=== PATIENT | male | born 1990 | race Two or more races ===

== ENCOUNTER 2024-11-10 21:38 | Emergency (ER) | payer OTHER ==
[~2024-11-10] VITALS: Ht 172.7 cm; Wt 92.5 kg
[2024-11-10 22:08] LABS: Hematocrit 33.5 % (41.0-53.0); Hemoglobin 11.1 g/dL (13.5-17.5); Mean Corpuscular Hemoglobin 25.5 pg (28.0-32.0); Mean Corpuscular Volume 77.1 fL (80.0-100.0); Nucleated Red Blood Cells % 0.1 %
[2024-11-10 22:13] LABS: Chloride 99 mmol/L (98-107); Potassium 3.7 mmol/L (3.5-5.1); Sodium 137 mmol/L (136-145)
[2024-11-10 22:14] LABS: Anion Gap 12 (5-15); Carbon Dioxide 26 mmol/L (20-31)
[2024-11-10 22:15] LABS: Calcium 9.5 mg/dL (8.7-10.4)
[2024-11-10 22:19] LABS: BUN/Creatinine Ratio 8.8 (10.0-20.0); Blood Urea Nitrogen 10 mg/dL (9-23); Glucose 91 mg/dL (74-106)
[2024-11-10] MEDS: ACETAMINOPHEN 325 MG TAB PO ONE (22:32)
[2024-11-10 22:36] LABS: Lipase 27 U/L (12-53)
--- NOTE | 2024-11-10 22:41 | DVH ---
CHEST RADIOGRAPH Indication: cough Technique: 1 view Comparison: None FINDINGS: Lines and Tubes: None. Lungs/Pleura: Dense right upper lobe consolidation. The left lung is clear. No pleural abnormality. Cardiomediastinum: Unremarkable. Other: No acute osseous abnormality. IMPRESSION: Right upper lobe consolidation consistent with pneumonia.
[2024-11-10 22:51] LABS: Urine Protein, UAD 1+ (Negative)
--- NOTE | 2024-11-11 00:26 | ED.PDOC ---
SOB-HPI HPI Comments 34-year-old male presents to ER with complaints of cough x1 week. Patient reports he has been experiencing productive cough with green phlegm, intermittent fever/body aches/chills and intermittent frontal headache/nausea x 1 week. He rates his current pain a 7/10. States that he last took [id number] DayQuil for his symptoms at 12:00 p.m. prior to arrival to ER. Patient presents to ER febrile on arrival at 102.1 F, ambulatory, alert oriented x4, with steady gait, in no distress and notes he's also experienced intermittent episodes of shortness of breath x 1 week. Denies chest pain, hemoptysis, nausea/vomiting, sore throat, dizziness, night sweats or any further symptoms/complaints Chief Complaint: Flu like Time Seen by MD: 21:48 Primary Care Provider: KAY Reviewed notes: Nurses Notes, Medications, Allergies Information Source: Patient Mode of Arrival: Ambulatory Past Medical History Past Medical History (Other): Cervical fx Surgical History (Other): Cerivcal spinal surgery Family History Family History: Unknown Social History Smoker: Non-Smoker Alcohol: Denies ETOH Use Drugs: Denies Drug Use Lives In: Home Constitutional: reports: others (As stated in HPI) EENTM: reports: others (As stated in HPI) Respiratory: reports: others (As stated in HPI) Cardiovascular: denies: chest pain, dizzy spells, diaphoresis, Dyspnea on exertion, edema, irregular heart beat, left arm pain, lightheadedness, palpitations, PND, syncope, others Gastrointestinal: denies: abdomen distended, abdominal pain, blood streaked bowels, constipated, diarrhea, dysphagia, difficulty swallowing, hematemesis, melena, nausea, poor appetite, poor fluid intake, rectal bleeding, rectal pain, vomiting, others Genitourinary: denies: burning, dysuria, flank pain, frequency, hematuria, incontinence, penile discharge, penile sore, pain, testicle pain, testicle swelling, urgency, others Neurological: reports: others (As stated in HPI) Musculoskeletal: denies: back pain, gout, joint pain, joint swelling, muscle pain, muscle stiffness, neck pain, others Integumetry: denies: bruises, change in color, change in hair/nails, dryness, laceration, lesions, lumps, rash, wounds, others Allergic/Immunocompromised: denies: Difficulty Healing, Frequent Infections, Hives, Itching, others Hematologic/Lymphatic: denies: anemia, blood clots, easy bleeding, easy bruising, swollen glands, others Endocrine: denies: excessive hunger, excessive sweating, excessive thirst, excessive urination, flushing, intolerance to cold, intolerance to heat, unexplained weight gain, unexplained weight loss, others Psychiatric: denies: anxiety, bipolar disorder, depression, hopeless, panic disorder, schizophrenia, sleepless, suicidal, others Physical Exam General Appearance: No Apparent Distress, Obese HEENT: Normal ENT Inspection, PERRL/EOMI, Pharynx Normal, TMs Normal Neck: Full Range of Motion, Non-Tender, Normal Respiratory: Chest Non-Tender, Decreased Breath Sounds (Noted to right upper lung jimenes), Lungs Clear, No Accessory Muscle Use, No Respiratory Distress Cardiovascular: No Murmur, No Gallop, Regular Rate/Rhythm Breast Exam: Deferred Gastrointestinal: Non Tender, No Pulsatile Mass, Soft Genitalia: Deferred Pelvic: Deferred Rectal: Deferred Extremities: Normal capillary refill, Normal range of motion Neurologic: Alert, 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 Was a procedure done?: No Sedation Sedation?: No Differential Dx Differential Diagnosis: Pulmonary Embolism, Respiratory Distress, Pharyngitis, URI, Other (COVID-19, INFLUENZA) X-Ray, Labs, Meds, VS Vital Signs Date Time Temp Pulse Resp B/P (MAP) Pulse Ox O2 Delivery O2 Flow Rate FiO2 11/11/24 02:14 99.5 84 16 144/78 (100) 97 99.5 11/11/24 00:05 98 19 94 Room Air 11/11/24 00:05 99.5 98 19 143/74 (97) 94 99.5 11/10/24 23:32 99.6 11/10/24 22:32 100.4 11/10/24 21:43 101.5 95 20 128/69 95 101.5 Lab Test 11/11/24 00:19 106/25 00:14 11/10/24 22:00 11/10/24 21:58 Range/Units Lactic Acid Level 1.3 0.4-2.0 mmol/L Influenza Type A Antigen Negative Negative Influenza Type B Antigen Negative Negative SARS-CoV-2 Antigen (Rapid) Negative NEGATIVE Urine Color Yellow Yellow Urine Clarity Clear Clear Urine pH 7.0 5.0-9.0 Urine Specific [employer] 1.027 1.001-1.035 Urine Protein 1+ H Negative Urine Ketones 3+ H Negative Urine Blood Negative Negative /uL Urine Nitrite Negative Negative Urine Bilirubin Negative Negative Urine Urobilinogen 4 H Negative mg/dL Urine Leukocyte Esterase Negative Negative /uL Urine RBC 1 0 - 3 /hpf Urine Microscopic WBC 1 0-3 /HPF Urine Squamous Epithelial Cells Few <5 /hpf Urine Bacteria None seen None Seen /hpf Urine Mucus Few None Seen Urine Glucose Normal Normal mg/dL White Blood Count 7.5 4.4-10.8 10^3/uL Red Blood Count 4.35 L 4.5-5.90 10^6/uL Hemoglobin 11.1 L 13.5-17.5 g/dL Hematocrit 33.5 L 41.0-53.0 % Mean Corpuscular Volume 77.1 L 80.0-100.0 fL Mean Corpuscular Hemoglobin 25.5 L 28.0-32.0 pg Mean Corpuscular Hemoglobin Concent 33.1 32.0-36.0 g/dL Red Cell Distribution Width 15.6 H 11.8-14.3 % Platelet Count 282 140-450 10^3/uL Mean Platelet Volume 8.4 6.9-10.8 fL Neutrophils (%) (Auto) 77.8 37.0-80.0 % Lymphocytes (%) (Auto) 11.8 10.0-50.0 % Monocytes (%) (Auto) 8.7 0.0-12.0 % Eosinophils (%) (Auto) 0.9 0.0-7.0 % Basophils (%) (Auto) 0.8 0.0-2.0 % Neutrophils # (Auto) 5.8 1.6-8.6 10 ^3/uL Lymphocytes # (Auto) 0.9 0.4-5.4 10 ^3/uL Monocytes # (Auto) 0.6 0-1.3 10 ^3/uL Eosinophils # (Auto) 0.1 0-0.8 10 ^3/uL Basophils # (Auto) 0.1 0-0.2 10 ^3/uL Nucleated Red Blood Cells 0.1 % D-Dimer, Quantitative 1.30 H 0.0-0.49 mg/L FEU Sodium Level 137 136-145 mmol/L Potassium Level 3.7 3.5-5.1 mmol/L Chloride Level 99 98-107 mmol/L Carbon Dioxide Level 26 20-31 mmol/L Anion Gap 12 5-15 Blood Urea Nitrogen 10 9-23 mg/dL Creatinine 1.14 0.700-1.30 mg/dL Glomerular Filtration Rate Calc 87 >90 mL/min BUN/Creatinine Ratio 8.8 L 10.0-20.0 Serum Glucose 91 74-106 mg/dL Calcium Level 9.5 8.7-10.4 mg/dL Lipase 27 12-53 U/L Current Medications Medications (Trade) Dose Ordered Sig/Diomedes Route Start Time Stop Time Status Last Admin Acetaminophen (Tylenol Tablet) 650 mg ONCE ONCE PO 11/10/24 22:00 11/10/24 22:01 DC 11/10/24 22:32 Ceftriaxone Sodium 50 ml @ 100 mls/hr ONCE ONCE IV 11/11/24 00:15 11/11/24 00:45 DC 11/11/24 01:02 Azithromycin 250 ml @ 125 mls/hr ONCE ONCE IV 11/11/24 00:15 11/11/24 02:14 DC 11/11/24 02:00 Methylprednisolone Sodium Succinate (Solu Medrol) 125 mg ONCE ONCE IV 11/11/24 00:15 11/11/24 00:16 DC 11/11/24 01:02 Sodium Chloride 1,000 ml @ 1,000 mls/hr Q1H ONCE IV 11/11/24 00:15 11/11/24 01:14 DC 11/11/24 00:32 PATIENT: DIGNA PINZON,NYAOREACCT: [id number]: [id number] : 1990 LOC: ER ROOM / BED: / AGE / SEX: 34 / M ADM STATUS: REG ER SERVICE [id number] ORDERING PHYSICIAN: MARY ALEXANDRE PROCEDURE(s): CXR2 - CHEST TWO VIEWS ROUTINE REASON: cough ORDER NUMBER(s): [id number], ACCESSION NUMBER(s): [id number] CHEST RADIOGRAPH Indication: cough Technique: 1 view Comparison: None FINDINGS: Lines and Tubes: None. Lungs/Pleura: Dense right upper lobe consolidation. The left lung is clear. No pleural abnormality. Cardiomediastinum: Unremarkable. Other: No acute osseous abnormality. IMPRESSION: Right upper lobe consolidation consistent with pneumonia. ATED BY: KENRICK FRANCISCO MD DICTATED DATE/TIME: 11/10/242238 SIGNED BY: KENRICK FRANCISCO MD SIGNED DATE/TIME: 11/10/242238 CC: PATIENT: DIGNA PINZONTHELIONELOREACCT: [id number] UNIT: [id number] : 1990 LOC: ER ROOM / BED: / AGE / SEX: 34 / M ADM STATUS: REG ER SERVICE [id number] ORDERING PHYSICIAN: MARY ALEXANDRE PROCEDURE(s): CTACH - CT ANGIO CHEST CONTRAST REASON: shortness of breath, r/o PE ORDER NUMBER(s): [id number], ACCESSION NUMBER(s): [id number] CTA Chest with intravenous contrast INDICATION: shortness of breath, r/o PE COMPARISON: None TECHNIQUE: Multidetector spiral CTA of the chest was performed of the chest with intravenous contrast. PULMONARY ANGIOGRAPHY PROTOCOL was utilized using a bolus- tracking technique centered on the main pulmonary artery. Axial, coronal and sagittal multiplanar and MIP reformats were performed. Radiation Dose : 1. Chest: CTDI volume is 25.75 mGy. Dose-length product is 1028.73 mGy*cm The dose indicators for CT are the volume Computed Tomography (CT) Dose Index (CTDIvol) and the Dose Length Product (DLP), and are measured in units of mGy and mGy-cm, respectively. These indicators are not patient dose, but values generated from the CT scanner acquisition factors. The report includes radiation exposure data for exposures received during this examination. Findings: Pulmonary artery: Suboptimal opacification of the pulmonary arterial vasculature secondary to timing of the contrast bolus limits the ability to exclude smaller and/or more distal segmental and subsegmental pulmonary emboli. No large central or large segmental pulmonary embolism. Lower neck: Normal thyroid. Lungs: Posterior right upper lobe consolidation with patchy multifocal right upper and lower lobe pulmonary infiltrate consistent with pneumonia. No evidence of pleural effusion or pneumothorax. Heart/Vascular Structures: Normal heart size. No pericardial effusion. Lymph Nodes: No adenopathy Musculoskeletal: No acute osseous abnormality. Soft tissues: Normal. Upper abdomen: Limited portions of the upper abdomen are unremarkable. IMPRESSION: 1. Suboptimal opacification of the pulmonary arterial vasculature secondary to timing of the contrast bolus limits the ability to exclude No large central or large segmental pulmonary embolism. 2. Posterior right upper lobe consolidation with patchy multifocal right upper and lower lobe pulmonary infiltrate consistent with pneumonia. ATED BY: JOSAFAT FRANCOIS MD DICTATED DATE/TIME: 11/11/24139 SIGNED BY: JOSAFAT FRANCOIS MD SIGNED DATE/TIME: 11/11/24139 CC: CBC reviewed-no leukocytosis BMP reviewed without any significant abnormalities Lipase reviewed-normal D-dimer 1.3 reviewed Lactic acid reviewed-normal Blood cultures ordered Reviewed without any significant abnormalities Swab results reviewed-negative Chest x-ray reviewed CT angio w/o contrast reviewed Hep-Lock IV ordered Rocephin 1 g IV ordered Azithromycin IV ordered Solu-Medrol 125 mg IV ordered NS 1 liter IV ordered Tylenol 650 mg PO ordered Ibuprofen 800 mg PO ordered Patient elected for outpatient management of pneumonia, had improvement in symptoms, vitals stable, denied any shortness of breath/chest pain, oxygenating well on RA, tolerating p.o. intake well and well appearing prior to discharge Strict return precautions were discussed with patient including worsening shortness of breath, chest pain, hemoptysis, vomiting, confusion, high fevers or any new/worsening symptoms Advised to follow up with PCP in 1-2 days Patient verbalized understanding and agreeable with current plan of care Advised to return to ER immediately if symptoms worsen Images Reviewed?: Images reviewed and evaluated by Time of 1ST Reevaluation: 00:22 Reevaluation 1ST: N/A Time of 2ND Reevaluation: 01:24 Reevaluation 2ND: Improved Patient Education/Counseling: Diagnosis, Treatment, Prognosis, Need For Follow Up Family Education/Counseling: No Family Present SEPSIS Sepsis Screen Date sepsis recognized/suspect: Nov 10, 2024 Time Sepsis recognized/suspect: 2145 Recent Procedure: No On Antibiotic Therapy: No Respiratory Rate >20: No Heart Rate >90: No Temp<36 C (96.8 F) or >38.3 C: Yes SBP <90 or MAP <65 mmHG: No New Acute Mental Status Change: No Is the patient on CPAP, BIPAP,: No Physician Orders Chest Two Views Routine (11/10/24 21:48) Heplock Iv (11/11/24 ) Blood Culture (11/11/24 00:07) Ct Angio Chest Contrast (11/11/24 00:59) Vital Signs Date Time Temp Pulse Resp B/P (MAP) Pulse Ox O2 Delivery O2 Flow Rate FiO2 11/11/24 02:14 99.5 84 16 144/78 (100) 97 99.5 11/11/24 00:05 98 19 94 Room Air 11/11/24 00:05 99.5 98 19 143/74 (97) 94 99.5 11/10/24 23:32 99.6 11/10/24 22:32 100.4 11/10/24 21:43 101.5 95 20 128/69 95 101.5 Laboratory Tests Test 11/10/24 21:58 11/11/24 00:19 White Blood Count 7.5 10^3/uL (4.4-10.8) Lactic Acid Level 1.3 mmol/L (0.4-2.0) Medications Medications Dose Ordered Sig/Diomedes Route Start Time Stop Time Status Last Admin Dose Admin Acetaminophen 650 mg ONCE ONCE PO 11/10/24 22:00 11/10/24 22:01 DC 11/10/24 22:32 Azithromycin 250 ml @ 125 mls/hr ONCE ONCE IV 11/11/24 00:15 11/11/24 02:14 DC 11/11/24 02:00 Ceftriaxone Sodium 50 ml @ 100 mls/hr ONCE ONCE IV 11/11/24 00:15 11/11/24 00:45 DC 11/11/24 01:02 Methylprednisolone Sodium Succinate 125 mg ONCE ONCE IV 11/11/24 00:15 11/11/24 00:16 DC 11/11/24 01:02 Sodium Chloride 1,000 ml @ 1,000 mls/hr Q1H ONCE IV 11/11/24 00:15 11/11/24 01:14 DC 11/11/24 00:32 Departure 1 Departure Time of Disposition: 01:48 Impression: Primary Impression: Pneumonia Qualified Codes: J18.9 - Pneumonia, unspecified organism Disposition: HOME / SELF CARE / HOMELESS Condition: Stable e-Prescriptions Albuterol Sulfate (VENTOLIN MDI) 90 Mcg Ih 2 PUFF IN Q6HPRN, #1 INH 0 Refills Prov: MARY ALEXANDRE 11/11/24 Acetaminophen (Acetaminophen) 500 Mg Tab 500 MG PO Q4HPRN, #30 TAB 0 Refills Prov: MARY ALEXANDRE 11/11/24 Prednisone (Prednisone) 20 Mg Tab 20 MG PO BID for 5 Days, #10 TAB 0 Refills Prov: MARY ALEXANDRE 11/11/24 Levofloxacin Hemihydrate (LEVOFLOXACIN) 750 Mg Tab 1 TAB PO DAILY for 5 Days, #5 TAB 0 Refills Prov: MARY ALEXANDRE 11/11/24 Discharged With: Self Critical Care Note Critical Care Time?: No Stability Stability form required: No Heart Score Heart Score: Heart Score Response (Comments) Value History N/A 0 EKG N/A 0 Age N/A 0 Risk Factors N/A 0 Troponin N/A 0 Total 0 MARY ALEXANDRE Nov 11, 2024 00:26
[2024-11-11] MEDS: IBUPROFEN 800 MG TAB PO ONE (00:30)
[2024-11-11] MEDS: SODIUM CHLORIDE 0.9% 1,000 ML IV ONE (00:32)
[2024-11-11] MEDS: methylPREDNISolone SOD SUCC 125 MG/2 ML VL IV ONE (01:02)
[2024-11-11 01:06] LABS: COVID19 ANTIGEN SOFIA FIA NEGATIVE (NEGATIVE)
[2024-11-11] MEDS: IOHEXOL 350 MG/ML 100ML IJ ONE (01:09)
--- NOTE | 2024-11-11 01:42 | DVH ---
CTA Chest with intravenous contrast INDICATION: shortness of breath, r/o PE COMPARISON: None TECHNIQUE: Multidetector spiral CTA of the chest was performed of the chest with intravenous contrast . PULMONARY ANGIOGRAPHY PROTOCOL was utilized using a bolus-tracking technique centered on the main p ulmonary artery. Axial, coronal and sagittal multiplanar and MIP reformats were performed. Radiation Dose : 1. Chest: CTDI volume is 25.75 mGy. Dose-length product is 1028.73 mGy*cm The dose indicators for CT are the volume Computed Tomography (CT) Dose Index (CTDIvol) and the Dose Length Product (DLP), and are measured in units of mGy and mGy-cm, respectively. These indicators are not patient dose, but values generated from the CT scanner acquisition factors. The report includes radiation exposure data for exposures received during this examination. Findings: Pulmonary artery: Suboptimal opacification of the pulmonary arterial vasculature secondary to timing of the contrast jennifer christa limits the ability to exclude smaller and/or more distal segmental and subsegmental pulmonary emb vida. No large central or large segmental pulmonary embolism. Lower neck: Normal thyroid. Lungs: Posterior right upper lobe consolidation with patchy multifocal right upper and lower lobe pul monary infiltrate consistent with pneumonia. No evidence of pleural effusion or pneumothorax. Heart/Vascular Structures: Normal heart size. No pericardial effusion. Lymph Nodes: No adenopathy Musculoskeletal: No acute osseous abnormality. Soft tissues: Normal. Upper abdomen: Limited portions of the upper abdomen are unremarkable. IMPRESSION: 1. Suboptimal opacification of the pulmonary arterial vasculature secondary to timing of the contrast bolus limits the ability to exclude No large central or large segmental pulmonary embolism. 2. Posterior right upper lobe consolidation with patchy multifocal right upper and lower lobe pulmona ry infiltrate consistent with pneumonia.
[2024-11-11] MEDS ORDERED: ACET500T58 PO (01:56)
[2024-11-11] MEDS ORDERED: ALBUAER3 IN (01:56)
[2024-11-11] MEDS ORDERED: PRED20TA2 PO (01:56)
[2024-11-11] MEDS ORDERED: LEVO750T40 PO (01:56)
[2024-11-11] MEDS: AZITHROMYCIN 500MG/ 250ML 250 ML IV ONE (02:00)
[2024-11-11 02:14] VITALS: BP 144/78; PULSE 84; RESP 16; TEMP 99.5; O2SAT 97
== END 2024-11-11 04:20 | disposition home or self-care (01) ==
LOC: ER 21:38
DX: J18.9 Pneumonia, unspecified organism (principal); Z20.822 Contact with and (suspected) exposure to COVID-19
CPT/HCPCS: 36415; 71046; 71275; 80048; 81001; 83605; 83690; 85025; 85379; 87040; 87426; 87804; 96361; 96365; 96366; 96367; 96375; 99285; J0456; J0696; J2919; J7030; Q9967